=== PATIENT | female | born 1990 | race Caucasian/White ===

== ENCOUNTER 2016-07-19 09:22 | Observation (INO) | payer MEDICAID ==
[2016-07-19] MEDS ORDERED: IPRATROPIUM/ALBUTEROL 0.5-2.5 MG/3 ML AMPUL NEB ONE (09:50)
[2016-07-19] MEDS ORDERED: NORMAL SALINE 1000 ML 1,000 ML IV ONE (09:50)
--- NOTE | 2016-07-19 09:50 | ER Document Report ---
ED Respiratory Problem - General Time seen by provider: 09:45 Mode of Arrival: Ambulatory Information source: Patient TRAVEL OUTSIDE OF THE [place] IN LAST 30 DAYS: No - HPI Patient complains to provider of: Asthma Onset: Yesterday Associated symptoms: Other - See above <OLENA HERRERA - Last Filed: 07/19/16 10:26> <MEL DEVI - Last Filed: 07/19/16 13:24> - General Chief Complaint: Asthma Exacerbation Stated Complaint: DIFFICULTY BREATHING Notes: Patient is a 26 year old female who presents to the emergency department complaining of asthma exacerbation onset yesterday. Patient states she has been using her inhalers at home, which she typically uses everyday, with no relief as well as a nebulizer which helps for a little while but does not correct her complaint, patient used her last vial today. Patient also complains of wheezing and a non productive cough. Patient states she is and her last menstrual cycle was on June 08. (OLENA HERRERA) - Related Data Allergies/Adverse Reactions: No Known Allergies Allergy (Verified 07/19/16 09:30) Past Medical History - General Information source: Patient - Social History Smoking Status: Never Smoker Occupation: [employer] Family History: Reviewed & Not Pertinent Patient has suicidal ideation: No Patient has homicidal ideation: No Pulmonary Medical History: Reports: Hx Asthma - Immunizations Hx Diphtheria, Pertussis, Tetanus Vaccination: No <OLENA HERRERA - Last Filed: 07/19/16 10:26> Review of Systems - Review of Systems Constitutional: No symptoms reported EENT: No symptoms reported Cardiovascular: No symptoms reported Respiratory: See HPI, Cough, Wheezing, Other - Difficulty breathing Gastrointestinal: No symptoms reported Genitourinary: No symptoms reported Female Genitourinary: See HPI, Musculoskeletal: No symptoms reported Skin: No symptoms reported Hematologic/Lymphatic: No symptoms reported Neurological/Psychological: No symptoms reported -: Yes All other systems reviewed and negative <OLENA HERRERA - Last Filed: 07/19/16 10:26> Physical Exam - Vital signs Interpretation: Tachypneic - HEENT Head: Normocephalic, Atraumatic - Respiratory Respiratory status: Retractions, Tachypnea - only 2-3 words before breath Chest status: Nontender Breath sounds: Nonproductive cough - dry, Wheezing - expiratory and inspiratory Chest palpation: Normal - Cardiovascular Rhythm: Regular Heart sounds: Normal auscultation Murmur: No - Back Back: Normal, Nontender - Extremities General upper extremity: Normal inspection General lower extremity: Normal inspection - Neurological Neuro grossly intact: Yes Cognition: Normal Orientation: AAOx4 Emiliano Coma Scale Eye Opening: Spontaneous [place] Coma Scale Verbal: Oriented Emiliano Coma Scale Motor: Obeys Commands Emiliano Coma Scale Total: 15 Speech: Normal - Psychological Associated symptoms: Normal affect, Normal mood - Skin Skin Temperature: Warm Skin Moisture: Dry Skin Color: Normal <OLENA HERRERA - Last Filed: 07/19/16 10:26> Course - Laboratory Result Diagrams: 07/19/16 11:00 07/19/16 11:00 - Diagnostic Test Radiology reviewed: Image reviewed, Reports reviewed - Chest x-ray does not show an acute process - Consults Dr. Carrillo Time consulted: 13:10 Consulted provider: will come to ER <MEL DEVI - Last Filed: 07/19/16 13:24> - Vital Signs Vital signs: Temp Pulse Resp BP Pulse Ox 97.8 F 102 H 16 136/91 H 92 07/19/16 09:27 07/19/16 09:27 07/19/16 10:30 07/19/16 09:27 07/19/16 09:27 - Laboratory Laboratory results interpreted by me: 07/19/16 07/19/16 07/19/16 11:00 11:00 11:00 RDW 14.6 H Eosinophils % 6.1 H Chloride 108 H Serum HCG, Qual POSITIVE H Discharge <OLENA HERRERA - Last Filed: 07/19/16 10:26> - Discharge Admitting Provider: Hospitalist Unit Admitted: Medical Floor <MEL DEVI - Last Filed: 07/19/16 13:24> - Discharge Clinical Impression: First trimester Status asthmaticus Qualifiers: Asthma severity: unspecified severity Qualified Code(s): J45.902 - Unspecified asthma with status asthmaticus Condition: Stable Disposition: ADMITTED INPATIENT Referrals: JOSESITO CHRISTENSEN PA-C [Primary Care Provider] - Follow up as needed Scribe Attestation: 07/19/16 13:24 I personally performed the services described in the documentation, reviewed and edited the documentation which was dictated to the scribe in my presence, and it accurately records my words and actions. (MEL DEVI) Scribe Documentation - Scribe Written by Scribe:: vivian Jansen, 07/19/16, 0958 acting as scribe for :: Evaristo <OLENA HERRERA - Last Filed: 07/19/16 10:26>
[2016-07-19] MEDS ORDERED: MAGNESIUM SULFATE INJ 8 MEQ/2 ML IV ONE (09:51)
[2016-07-19] MEDS ORDERED: PREDNISONE 20 MG TABLET PO ONE (09:51)
[2016-07-19] MEDS ORDERED: ALBUTEROL SULFATE 0.083% NEB 2.5 MG/3 ML AMPUL NEB ONE ×2 (10:20→12:52)
[2016-07-19] MEDS ORDERED: MAGNESIUM SULFATE/D5W 1 GM/100 ML RTUPB IV ONE ×2 (11:30→12:00)
[2016-07-19 12:30] LABS: ABSOLUTE EOSINOPHILS # (AUTO) 0.6 10^3/uL (0.0-0.6); ABSOLUTE LYMPHOCYTES (AUTO) 1.4 10^3/uL (0.5-4.7); ABSOLUTE MONOCYTES (AUTO) 0.5 10^3/uL (0.1-1.4); BASOPHILS % (AUTO) 0.3 % (0-2); EOSINOPHILS % (AUTO) 6.1 % (0-6); HEMOGLOBIN 14.2 g/dL (12.0-15.5); HGB HCT DIFFERENCE -0.4; MEAN CORPUSCULAR HEMOGLOBIN 27.9 pg (27.0-33.4); MEAN CORPUSCULAR VOLUME 84 fl (80-97); MONOCYTES % (AUTO) 5.6 % (3-13); RED CELL DISTRIBUTION WIDTH 14.6 % (11.5-14.0); WHITE BLOOD COUNT 9.6 10^3/uL (4.0-10.5)
[2016-07-19 12:44] LABS: ALANINE AMINOTRANSFERASE 23 U/L (9-52); ALBUMIN 4.6 g/dL (3.5-5.0); ALKALINE PHOSPHATASE 64 U/L (38-126); ANION GAP 14 (5-19); ASPARTATE AMINO TRANSFERASE 15 U/L (14-36); BILIRUBIN,DIRECT 0.2 mg/dL (0.0-0.4); BILIRUBIN,TOTAL 0.5 mg/dL (0.2-1.3); BLOOD UREA NITROGEN 9 mg/dL (7-20); CALCIUM 9.8 mg/dL (8.4-10.2); CARBON DIOXIDE 22 mmol/L (22-30); CHLORIDE 108 mmol/L (98-107); GLUCOSE 105 mg/dL (75-110); POTASSIUM 3.9 mmol/L (3.6-5.0); SODIUM 143.8 mmol/L (137-145); TOTAL PROTEIN 7.8 g/dL (6.3-8.2)
[2016-07-19] MEDS ORDERED: ACETAMINOPHEN 325 MG TABLET PO PRN (13:37)
--- NOTE | 2016-07-19 13:54 | PDOC H&P ---
History of Present Illness Admission Date/PCP: JOSESITO CHRISTENSEN PA-C Patient complains of: Shortness of breath and wheezing History of Present Illness: YADIEL NAJERA is a 26 year old female with a history of asthma and was never been intubated but has required hospitalization previously presents with a four- day history of worsening shortness of breath cough and wheezing. Patient denies any fevers or chills. She denies orthopnea or PND. Patient presented to emergency room and was given relaxers but continued to have wheezing and she is referred for inpatient treatment of her asthma exacerbation. Patient denies any recent travel. She denies any immobility. Denies any lower extremity edema. She denies being around anyone who is sick. She does report that she is approximately 6 weeks . Past Medical History Pulmonary Medical History: Reports: Asthma Denies: Tuberculosis Psychiatric Medical History: Denies: Depression Past Surgical History Past Surgical History: Reports: None Social History Information Source: Patient Smoking Status: Never Smoker Frequency of Alcohol Use: Occasional Hx Recreational Drug Use: No Hx Prescription Drug Abuse: No - Advance Directive Resuscitation Status: Full Code Family History Family History: Mother's 49 and healthy. Father is in his 50s and is healthy. Parental Family History Reviewed: Yes Children Family History Reviewed: No Sibling(s) Family History Reviewed.: No Medication/Allergy Home Medications: Norgestimate-Ethinyl Estradiol [Mononessa 28 Tablet] 1 tab PO DAILY 05/17/15 Albuterol Sulfate [Proair HFA Inhalation Aerosol 8.5 gm MDI] 2 puff IH Q4H PRN # 1 hfa.aer.ad 05/18/15 Albuterol Sulfate [Ventolin 0.083% Neb 2.5 mg/3 mL Ampul] 2.5 mg NEB Q4H PRN # 60 vial.neb 05/18/15 Levofloxacin [Levaquin 750 mg Tablet] 750 mg PO DAILY #10 tab 05/18/15 Prednisone [Sterapred Ds] 1 pkg PO ASDIR PRN 12 Days 05/18/15 Albuterol Sulfate [Ventolin HFA MDI 18 GM] 1 - 2 puff IH Q4H PRN #1 mdi Prednisone [Deltasone 20 mg Tablet] 3 tab PO DAILY 5 Days 08/31/15 Hydrocodone/Acetaminophen [Baird 5-325 Tablet] 1 each PO Q4 PRN #10 tablet 03/08 Allergies/Adverse Reactions: No Known Allergies Allergy (Verified 07/19/16 09:30) Review of Systems Constitutional: ABSENT: chills, fatigue, fever(s), headache(s), night sweats, weight gain, weight loss Eyes: ABSENT: visual disturbances Ears: ABSENT: hearing changes Cardiovascular: ABSENT: chest pain, dyspnea on exertion, edema, orthropnea, palpitations Respiratory: PRESENT: as per HPI Gastrointestinal: ABSENT: abdominal pain, constipation, diarrhea, hematemesis, hematochezia, nausea, vomiting Genitourinary: ABSENT: dysuria, hematuria Musculoskeletal: ABSENT: joint swelling Integumentary: ABSENT: rash, wounds Neurological: ABSENT: abnormal gait, abnormal speech, confusion, dizziness, focal weakness, syncope Psychiatric: ABSENT: anxiety, depression Endocrine: ABSENT: cold intolerance, heat intolerance, polydipsia, polyuria Hematologic/Lymphatic: ABSENT: easy bleeding, easy bruising Physical Exam Vital Signs: Temp Pulse Resp BP Pulse Ox 97.8 F 102 H 16 136/91 H 92 07/19/16 09:27 07/19/16 09:27 07/19/16 10:30 07/19/16 09:27 07/19/16 09:27 Intake & Output 07/18/16 07/19/16 07/20/16 06:59 06:59 06:59 Weight 107.6 kg General appearance: PRESENT: no acute distress, well-developed, well-nourished Head exam: PRESENT: atraumatic, normocephalic Eye exam: PRESENT: conjunctiva pink, EOMI, PERRLA. ABSENT: scleral icterus Ear exam: PRESENT: normal external ear exam Mouth exam: PRESENT: moist, tongue midline Neck exam: ABSENT: carotid bruit, JVD, lymphadenopathy, thyromegaly Respiratory exam: PRESENT: wheezes - Bilateral respiratory wheezes. ABSENT: rales, rhonchi Cardiovascular exam: PRESENT: RRR. ABSENT: diastolic murmur, rubs, systolic murmur Vascular exam: PRESENT: normal capillary refill GI/Abdominal exam: PRESENT: normal bowel sounds, soft. ABSENT: distended, guarding, mass, organolmegaly, rebound, tenderness Rectal exam: PRESENT: deferred Extremities exam: ABSENT: calf tenderness, clubbing, pedal edema Neurological exam: PRESENT: alert, awake, oriented to person, oriented to place , oriented to time, oriented to situation, CN II-XII grossly intact. ABSENT: motor sensory deficit Psychiatric exam: PRESENT: appropriate affect Skin exam: PRESENT: dry, intact, warm. ABSENT: cyanosis, rash Results Laboratory Results: 07/19/16 11:00 07/19/16 11:00 07/19/16 07/19/16 07/19/16 11:00 11:00 11:00 WBC 9.6 RBC 5.10 Hgb 14.2 Hct 43.0 MCV 84 MCH 27.9 MCHC 33.0 RDW 14.6 H Plt Count 268 Seg Neutrophils % 73.0 Lymphocytes % 15.0 Monocytes % 5.6 Eosinophils % 6.1 H Basophils % 0.3 Absolute Neutrophils 7.0 Absolute Lymphocytes 1.4 Absolute Monocytes 0.5 Absolute Eosinophils 0.6 Absolute Basophils 0.0 Sodium 143.8 Potassium 3.9 Chloride 108 H Carbon Dioxide 22 Anion Gap 14 BUN 9 Creatinine 0.60 Est GFR ( Amer) > 60 Est GFR (Non-Af Amer) > 60 Glucose 105 Calcium 9.8 Total Bilirubin 0.5 AST 15 ALT 23 Alkaline Phosphatase 64 Total Protein 7.8 Albumin 4.6 Serum HCG, Qual POSITIVE H Impressions: Chest X-Ray 07/19/16 12:07 IMPRESSION: NO ACUTE RADIOGRAPHIC FINDING IN THE CHEST. Assessment & Plan - Diagnosis (1) Acute asthma exacerbation Qualifiers: Asthma severity: moderate persistent Qualified Code(s): J45.41 - Moderate persistent asthma with (acute) exacerbation Is this a current diagnosis for this admission?: YesPlan: Patient has failed outpatient treatment and will be admitted for IV steroids and nebulizers. She has no evidence for any type of infection. (2) First trimester Is this a current diagnosis for this admission?: Yes - Time Time Spent: 30 to 50 Minutes - Inpatient Certification Medical Necessity: Need Close Monitoring Due to Risk of Patient Decompensation, Need for Nebulizer Therapy and Monitoring of Response - Plan Summary Plan Summary: Patient will be admitted as observation as I anticipate this will require less than a two midnight stay.
[2016-07-19] MEDS: ALBUTEROL SULFATE 0.083% NEB 2.5 MG/3 ML AMPUL NEB PRN (19:54)
[2016-07-19] MEDS: METHYLPREDNISOLONE INJ 40 MG/1 ML SDV IV SCH (21:37)
[2016-07-20] MEDS: ALBUTEROL SULFATE 0.083% NEB 2.5 MG/3 ML AMPUL NEB PRN ×2 (02:42→08:40)
[2016-07-20] MEDS: METHYLPREDNISOLONE INJ 40 MG/1 ML SDV IV SCH (09:10)
[2016-07-20 16:56] VITALS: BP 110/63
--- NOTE | 2016-07-20 17:48 | PDOC DISCHARGE SUMMARY ---
General - Admit/Disc Date/PCP Admission Date/Primary Care Provider: 07/19/16 13:46 JOSESITO CHRISTENSEN PA-C Discharge Date: 07/20/16 - Discharge Diagnosis (1) Acute asthma exacerbation Is this a current diagnosis for this admission?: YesSummary: Improved with steroids. (2) First trimester Is this a current diagnosis for this admission?: Yes - Additional Information Resuscitation Status: Full Code Discharge Diet: Regular Discharge Activity: Activity As Tolerated Home Medications: Albuterol Sulfate [Albuterol Sulfate 2.5mg/3 mL] 2.5 mg PO Q4HP PRN 07/20/16 Albuterol Sulfate [Proair HFA Inhalation Aerosol 8.5 gm MDI] 2 puff IH Q4HP PRN 07/20/16 Fluticasone/Salmeterol [Advair HFA 45-21 mcg Inhaler] 2 puff IH Q4HP PRN Pnv95/Ferrous Fumarate/FA [ Tablet] 1 tab PO DAILY 07/20/16 Prednisone 10 mg PO DAILY #39 tablet 07/20/16 History of Present Illness History of Present Illness: YADIEL NAJERA is a 26 year old female with a history of asthma and was never been intubated but has required hospitalization previously presents with a four- day history of worsening shortness of breath cough and wheezing. Patient denies any fevers or chills. She denies orthopnea or PND. Patient presented to emergency room and was given relaxers but continued to have wheezing and she is referred for inpatient treatment of her asthma exacerbation. Patient denies any recent travel. She denies any immobility. Denies any lower extremity edema. She denies being around anyone who is sick. She does report that she is approximately 6 weeks . Hospital Course Hospital Course: 26-year-old female with history of asthma admitted for an asthma exacerbation. She was treated with nebulizers and IV steroids. Patient had quick improvement in her respiratory status on the day of discharge she was back to her baseline. Please note patient is in her first trimester . She is sent home on a prednisone taper and continue with her inhalers. Physical Exam Vital Signs: Temp Pulse Resp BP Pulse Ox 97.7 F 96 17 110/63 98 07/20/16 16:00 07/20/16 16:00 07/20/16 16:00 07/20/16 16:00 07/20/16 16:00 Intake & Output 07/19/16 07/20/16 07/21/16 06:59 06:59 06:59 Intake Total 800 744 Balance 800 744 Weight 106.2 kg General appearance: PRESENT: no acute distress Eye exam: PRESENT: conjunctiva pink. ABSENT: scleral icterus Mouth exam: PRESENT: moist, tongue midline Neck exam: ABSENT: JVD Respiratory exam: PRESENT: clear to auscultation elise. ABSENT: rales, rhonchi, wheezes GI/Abdominal exam: PRESENT: normal bowel sounds, soft. ABSENT: distended, guarding, mass, organolmegaly, rebound, tenderness Extremities exam: ABSENT: calf tenderness, clubbing, pedal edema Neurological exam: PRESENT: alert, awake, oriented to person, oriented to place , oriented to time, oriented to situation, CN II-XII grossly intact. ABSENT: motor sensory deficit Psychiatric exam: PRESENT: appropriate affect Skin exam: PRESENT: dry, intact, warm. ABSENT: cyanosis, rash Results Impressions: Chest X-Ray 07/19/16 12:07 IMPRESSION: NO ACUTE RADIOGRAPHIC FINDING IN THE CHEST. Qualifiers PATEINT BEING DISCHARGED WITH ANY OF THE FOLLOWING DIAGNOSIS?: No Plan Discharge Plan: She will follow-up with her primary care in 2 weeks. Time Spent: Less than 30 Minutes
== END 2016-07-20 18:26 | disposition home or self-care (01) ==
LOC: ER 09:22 → EH 13:46 → INTOOBSV 13:46 → 5 18:19
PROVIDERS: ADMIT Internal Medicine; ATTEND Internal Medicine
PROC: 3E033GC Introduction of Other Therapeutic Substance into Peripheral Vein, Percutaneous Approach (ICD-10-PCS; principal; 2016-07-19)
PROC: 3E0337Z Introduction of Electrolytic and Water Balance Substance into Peripheral Vein, Percutaneous Approach (ICD-10-PCS; 2016-07-19)
DX: O99.511 Diseases of the respiratory system complicating pregnancy, first trimester (principal); J45.41 Moderate persistent asthma with (acute) exacerbation; Z3A.01 Less than 8 weeks gestation of pregnancy
CPT/HCPCS: 94640 ×4; 99285; 96361; 96365; 36415; 84703; 85025; 80053; 71010; J2920 ×2; J3475; J7512; J3490 ×2; J7030; J7620; G0378

== ENCOUNTER 2016-07-24 09:31 | Emergency (ER) | payer MEDICAID ==
--- NOTE | 2016-07-24 10:29 | ER Document Report ---
ED Medical Screen (RME) - General Chief Complaint: Vaginal Bleeding Stated Complaint: VAGINAL BLEEDING Notes: Patient is and having some vaginal bleeding yesterday. She is approximately 7 weeks , eighth , 2 live births. She has had some spotting and bleeding yesterday, but it also stopped yesterday. Did have some mild cramping yesterday. Patient has not had any care or ultrasound yet. Having nausea no vomiting. TRAVEL OUTSIDE OF THE [place] IN LAST 30 DAYS: No - Related Data Allergies/Adverse Reactions: No Known Allergies Allergy (Verified 07/24/16 09:40) Past Medical History Pulmonary Medical History: Reports: Hx Asthma Denies: Hx Tuberculosis Renal/ Medical History: Denies: Hx Peritoneal Dialysis Psychiatric Medical History: Denies: Hx Depression - Immunizations Hx Diphtheria, Pertussis, Tetanus Vaccination: No Physical Exam - Vital signs Vitals: Temp Pulse Resp BP Pulse Ox 98.2 F 91 21 H 119/86 H 98 07/24/16 09:40 07/24/16 09:40 07/24/16 09:40 07/24/16 09:40 07/24/16 09:40 Course - Vital Signs Vital signs: Temp Pulse Resp BP Pulse Ox 98.2 F 91 21 H 119/86 H 98 07/24/16 09:40 07/24/16 09:40 07/24/16 09:40 07/24/16 09:40 07/24/16 09:40
--- NOTE | 2016-07-24 12:12 | ER Document Report ---
ED GI/ - General Chief Complaint: Vaginal Bleeding Stated Complaint: VAGINAL BLEEDING Time seen by provider: 12:06 Mode of Arrival: Ambulatory Information source: Patient Notes: 26-year-old female presents to ED for vaginal bleeding starting yesterday she is about 6-7 weeks this is her eighth with 2 live bursts. She is spotting and she also started yesterday. Does have some mild cramping. Patient has not had a care or ultrasound that she had TRAVEL OUTSIDE OF THE [place] IN LAST 30 DAYS: No - HPI Patient complains to provider of: Pelvic pain, , Vaginal bleeding Onset: Yesterday Timing/Duration: Intermittent Quality of pain: Cramping Severity at maximum: Mild Severity in ED: Mild Pain Level: 1 Location: Pelvis Vaginal bleeding (Compared to normal period): Spotting Menstrual period history: : 8 Para: 2 heart tones (bpm): 126 EDC: 03/16/17 ABO type: AB Rh factor: positive OB ultrasound done: Yes vitamins taken: Yes Associated symptoms: Nausea, Vomiting, Other - Vaginal bleeding, cramping Exacerbated by: Denies Relieved by: Denies Similar symptoms previously: Yes Recently seen / treated by doctor: No - Related Data Allergies/Adverse Reactions: No Known Allergies Allergy (Verified 07/24/16 09:40) Past Medical History - General Information source: Patient Last Menstrual Period: 06/08/16 - Social History Smoking Status: Former Smoker Cigarette use (# per day): No Chew tobacco use (# tins/day): No Smoking Education Provided: No Frequency of alcohol use: Occasional Drug Abuse: None Occupation: benefits sales consultant Lives with: Spouse/Significant other - Child Family History: Arthritis, CAD, COPD, CVA, DM, Hypertension, Malignancy, Thyroid Disfunction Patient has suicidal ideation: No Patient has homicidal ideation: No - Past Medical History Cardiac Medical History: Reports: None Pulmonary Medical History: Reports: Hx Asthma EENT Medical History: Reports: None Neurological Medical History: Reports: None Endocrine Medical History: Reports: None Renal/ Medical History: Reports: None Malignancy Medical History: Reports: None GI Medical History: Reports: None Musculoskeltal Medical History: Reports None Skin Medical History: Reports None Psychiatric Medical History: Reports: None Traumatic Medical History: Reports: None Infectious Medical History: Reports: None Surgical Hx: Negative Past Surgical History: Reports: None - Immunizations Hx Diphtheria, Pertussis, Tetanus Vaccination: No Review of Systems - Review of Systems Constitutional: No symptoms reported EENT: No symptoms reported Cardiovascular: No symptoms reported Respiratory: No symptoms reported Gastrointestinal: Nausea, Vomiting Genitourinary: No symptoms reported Female Genitourinary: , Vaginal bleeding, Other - Pelvic cramping Musculoskeletal: No symptoms reported Skin: No symptoms reported Hematologic/Lymphatic: No symptoms reported Neurological/Psychological: No symptoms reported Physical Exam - Vital signs Vitals: Temp Pulse Resp BP Pulse Ox 98.2 F 91 21 H 119/86 H 98 07/24/16 09:40 07/24/16 09:40 07/24/16 09:40 07/24/16 09:40 07/24/16 09:40 Interpretation: Normal - General General appearance: Appears well, Alert - HEENT Head: Normocephalic, Atraumatic Eyes: Normal Pupils: PERRL - Respiratory Respiratory status: No respiratory distress Chest status: Nontender Breath sounds: Normal Chest palpation: Normal - Cardiovascular Rhythm: Regular Heart sounds: Normal auscultation Murmur: No - Abdominal Inspection: Normal Distension: No distension Bowel sounds: Normal Tenderness: Nontender Organomegaly: No organomegaly - Genitourinary External exam: Normal Speculum exam: Cervix closed Vaginal bleeding: None Bimanuel exam: Uterus enlarged - Back Back: Normal, Nontender - Extremities General upper extremity: Normal inspection, Nontender, Normal color, Normal ROM , Normal temperature General lower extremity: Normal inspection, Nontender, Normal color, Normal ROM , Normal temperature, Normal weight bearing. No: Estefany's sign - Neurological Neuro grossly intact: Yes Cognition: Normal Orientation: AAOx4 [place] Coma Scale Eye Opening: Spontaneous Emil[place] Coma Scale Verbal: Oriented [place] Coma Scale Motor: Obeys Commands Emiliano Coma Scale Total: 15 Speech: Normal Motor strength normal: LUE, RUE, LLE, RLE Sensory: Normal - Psychological Associated symptoms: Normal affect, Normal mood - Skin Skin Temperature: Warm Skin Moisture: Dry Skin Color: Normal Course - Re-evaluation Re-evalutation: 07/24/16 22:36 Discussed ultrasound with patient and written report given to patient to follow- up with [facility]. Patient given a list of [facility] today and instructed to call first thing in the morning. Patient was treated with Flagyl and azithromycin and Rocephin for her bacterial vaginosis and Trichomonas patient did not want to wait for the GC and chlamydia results so she was to call back later for these results. They were both negative. - Vital Signs Vital signs: Temp Pulse Resp BP Pulse Ox 97.7 F 73 16 126/70 H 95 07/24/16 14:21 07/24/16 14:21 07/24/16 14:21 07/24/16 14:21 07/24/16 14:21 - Laboratory Laboratory results interpreted by me: 07/24/16 10:30 Beta HCG, Quant 88882.00 H - Diagnostic Test Radiology reviewed: Image reviewed, Reports reviewed Discharge - Discharge Clinical Impression: Vaginal bleeding before 22 weeks gestation, Trichomonas infection, Vaginitis affecting in first trimester, antepartum Condition: Stable Disposition: HOME, SELF-CARE Instructions: [facility] Additional Instructions: : You are . care is best started as early in as possible. If you're unsure about continuing this , you should discuss this with your physician or with [facility] stringer at [facility]. You should take only medications approved by your physician. Acetaminophen can safely be taken for minor pains. As a rule, medication for chronic conditions such as asthma or seizures can safely be continued. You should discuss with the physician every medicine you take. Any regular exercise program can be continued. Talk to your physician, however, before engaging in competitive or demanding sports. Alcohol, smoking, and "street drugs" are dangerous to your baby. Cocaine is especially dangerous. Don't use any illicit drugs! BLEEDING DURING EARLY : You have been evaluated for passing blood while . While we take this symptom very seriously, most women with your degree of bleeding will go on to have a perfectly normal baby. At this time, there is no indication that a miscarriage will occur. (A miscarriage occurs when the fetus is abnormal. There is no medicine or treatment to prevent it.) A more serious cause of bleeding is tubal (or ectopic) . An ultrasound usually can show whether the is in the uterus or in the tube. Sometimes in early , no fetus is seen. In this case, careful follow-up, including repeat blood tests and repeat ultrasound, is necessary. Do not douche or have sex for at least a week, or until OK'd by the doctor. Don't use tampons. Call the doctor or return for re-examination if there is an increase in bleeding or cramping, extreme weakness, fainting, new abdominal pain, fever, or passage of tissue. VAGINITIS: Your exam shows that you have vaginitis, a vaginal infection. The infection can be caused by a many different organisms, including trichomonas or Gardnerella. The usual symptoms are vaginal irritation and discharge. The treatment is usually antibiotics such as Flagyl. Laboratory tests can determine which germ is responsible. Use the medication as prescribed. Because this infection can be transmitted sexually, your sexual partner may need to be checked and treated also. If your physician has not discussed this with you, please check before resuming sexual relations. If a culture shows gonorrhea or chlamydia, the infection must be reported to the health department. Call the doctor if you develop pelvic pain, fever, or problems with urination, or if you don't improve as expected. VAGINOSIS, BACTERIAL: Your exam shows you have bacterial vaginosis. This condition is due to an overgrowth of bacteria in the vagina. Symptoms may include vaginal itching or pain, a smelly discharge, and sometimes burning with urination. Normally this is not transmitted by sexual contact. Vaginosis can be treated with oral or topical antibiotics. Metronidazole ( Flagyl) pills are usually effective. Topical vaginal creams include Cleocin and Metro-Gel. You should avoid sexual contact until your symptoms are all better. Call the doctor if you develop pelvic pain, fever, or problems with urination, or if you don't improve as expected. VAGINAL TRICHOMONAS INFECTION: Trichomoniasis is infection of the vagina or male genital tract with Trichomonas vaginalis. It can be asymptomatic or cause urethritis, vaginitis, or occasionally cystitis, epididymitis, or prostatitis. Diagnosis is by microscopic examination of vaginal or prostatic secretions or by urethral culture. Patients and sex partners are treated with metronidazole. T. vaginalis is a flagellated, sexually transmitted protozoan that more often infects women (about 20% of women of reproductive age) than men. Infection may be asymptomatic in either sex, but asymptomatic is the rule for men. In men, protozoa may persist for long periods in the tract without causing symptoms; thus, protozoa may be transmitted unwittingly to sex partners. Trichomoniasis may account for up to 5% of nongonococcal, nonchlamydial urethritis in men in some areas. Co-infection with gonorrhea and other sexually transmitted diseases (STDs) is common. In women, symptoms range from none to copious, yellow-green, frothy vaginal discharge with soreness of the vulva and perineum, dyspareunia, and dysuria. Asymptomatic infection may become symptomatic at any time as the vulva and perineum become inflamed and edema develops in the labia. The vaginal delgado and surface of the cervix may have punctate, red "strawberry" spots. Urethritis and possibly cystitis may also occur. Men are usually asymptomatic; however, sometimes urethritis results in a discharge that may be transient, frothy, or purulent or that causes dysuria and frequency, usually early in the morning. Often, urethritis is mild and causes only minimal urethral irritation and occasional moisture at the urethral meatus , under the foreskin, or both. Epididymitis and prostatitis are rare complications. Trichomoniasis is suspected in women with vaginitis, in men with urethritis , and in their sex partners. Suspicion is high if symptoms persist after patients have been evaluated and treated for other infections such as gonorrhea and chlamydial, mycoplasmal, and ureaplasmal infections. In women, diagnosis is based on clinical criteria and in-office testing. The saline wet mount is examined microscopically as soon as possible to detect trichomonads.In men, microscopy of urine is insensitive, although occasionally organisms are visible in a first-voided morning specimen or a centrifuged specimen. Cultures of urine and urethral swabs are more sensitive. As with diagnosis of any STD, patients with trichomoniasis should be tested to exclude other common STDs such as gonorrhea and chlamydial infection. Metronidazole or tinidazole 2 g po in a single dose cures up to 95% of women if sex partners are treated simultaneously. Effectiveness of single-dose regimens in men is not as clear, so treatment is typically with metronidazole or tinidazole 500 mg bid for 5 to 7 days. Sex partners should be screened and treated for trichomoniasis and other STDs. If poor adherence to follow-up is likely, treatment can be initiated in sex partners of patients with documented trichomoniasis without confirming the diagnosis in the partner. CEPHALOSPORINS: An antibiotic of the cephalosporin class has been prescribed. This type of antibiotic covers a wide variety of infections, including those of the skin, lungs, middle ear, and urinary tract. This antibiotic is somewhat similar to the penicillin family. In rare cases , a person who is allergic to penicillin will also be allergic to this medication. If you have had a severe allergic reaction to penicillin, and have not taken this antibiotic since that time, notify your doctor. Antibiotics which cover many germs ("broad spectrum" antibiotics) are more likely to cause diarrhea or "yeast" infections. Women prone to vaginal yeast problems may suffer an attack after taking this antibiotic. In infants, oral thrush (white spots "stuck" on the cheek) or yeast diaper rash may result. See your doctor if these problems occur. Call the doctor at once if you develop hives, itching, shortness of breath , or lightheadedness. AZITHROMYCIN: Azithromycin (Zithromax) is a broad spectrum antibiotic in the same class as erythromycin. It can treat a variety of bacterial infections, but is most frequently used for respiratory infections. Azithromycin is extremely long-lasting. It accumulates in body tissues and continues to kill bacteria for many days. In order to improve absorption, Azithromycin should be taken at least one hour before or two hours after a meal. It does not have the same strong tendency to upset the stomach as erythromycin and is usually very well tolerated. Patients who have had a rash or other true allergic reactions to erythromycin should not take this medication. Call if you develop gastrointestinal distress, severe diarrhea, rash, hives, itching, or shortness of breath. METRONIDAZOLE: Metronidazole (Flagyl) has been prescribed. This medication is used to kill a type of bacteria called anaerobes, and protozoan parasites such as trichomonas and Giardia. Flagyl often causes a metallic taste in the mouth and mild nausea. Do not use alcohol in any form with Flagyl (including alcohol in medication elixirs). Flagyl interacts with alcohol to cause flushing, palpitations, headache, stomach cramps, and vomiting. Do not use Flagyl if you are taking Antabuse (disulfiram). Call the doctor at once if you develop rash, shortness of breath, itching, or lightheadedness. FOLLOW-UP CARE: If you have been referred to a physician for follow-up care, call the physician s office for an appointment as you were instructed or within the next two days. If you experience worsening or a significant change in your symptoms, notify the physician immediately or return to the Emergency Department at any time for re-evaluation. Labs and ultrasound of been discussed with you a copy of your wet mount and your ultrasound were given to you for your follow-up visit. You have been treated with antibiotics for the Trichomonas bacterial vaginosis and you have been treated in case the GC or chlamydia comes back positive. Please call in about 2 hours for the results of the GC and Chlamydia. Please complete the patient's satisfaction survey if you get one and return. If you do not receive a survey you can go to [facility] website [email or web address] and placed her comments about your very good care. Thank you very much. It was a pleasure be in your medical provider today. Forms: Elevated Blood Pressure, Return to Work Referrals: JOSESITO CHRISTENSEN PA-C [Primary Care Provider] - Follow up as needed
[2016-07-24] MEDS ORDERED: LIDOCAINE 1% INJ-PF (10 MG/ML) 30 ML SDV INJ ONE (13:20)
[2016-07-24] MEDS ORDERED: METRONIDAZOLE 500 MG TABLET PO ONE (13:20)
[2016-07-24] MEDS ORDERED: AZITHROMYCIN 250 MG TABLET PO ONE (13:20)
[2016-07-24] MEDS ORDERED: CEFTRIAXONE INJ 250 MG VIAL IM ONE (13:20)
[2016-07-24 14:11] LABS: CHLAM PCR NOT DETECTED (NOT DETECT)
[2016-07-24 14:24] VITALS: BP 126/70
== END 2016-07-24 14:24 | disposition home or self-care (01) ==
LOC: ER 09:31
DX: O26.851 Spotting complicating pregnancy, first trimester (principal); O23.591 Infection of other part of genital tract in pregnancy, first trimester; B96.89 Other specified bacterial agents as the cause of diseases classified elsewhere; O98.311 Other infections with a predominantly sexual mode of transmission complicating pregnancy, first trimester; A59.9 Trichomoniasis, unspecified; O26.891 Other specified pregnancy related conditions, first trimester; R10.2 Pelvic and perineal pain; O99.511 Diseases of the respiratory system complicating pregnancy, first trimester; J45.909 Unspecified asthma, uncomplicated; O21.9 Vomiting of pregnancy, unspecified; Z3A.01 Less than 8 weeks gestation of pregnancy; Z87.891 Personal history of nicotine dependence
CPT/HCPCS: 99284; 96372; 86900; 86901; 36415; 87210; 84702; 87491; 87591; 76817; Q0144; J3490 ×2; J0696

== ENCOUNTER 2016-10-11 19:36 | Emergency (ER) | payer MEDICAID ==
[2016-10-11] MEDS ORDERED: ALBUTEROL SULFATE 0.083% NEB 2.5 MG/3 ML AMPUL NEB ONE (20:11)
[2016-10-11] MEDS ORDERED: IPRATROPIUM/ALBUTEROL 0.5-2.5 MG/3 ML AMPUL NEB ONE ×2 (20:11→22:51)
--- NOTE | 2016-10-11 20:12 | ER Document Report ---
ED Medical Screen (RME) - General Chief Complaint: Other Stated Complaint: BREATHING DIFFICULTY,STD EXPOSURE Time Seen by Provider: 10/11/16 20:10 TRAVEL OUTSIDE OF THE [place] IN LAST 30 DAYS: No - HPI Notes: 10/11/16 20:11 Patient coming in for evaluation of shortness of breath. Patient is approximate 3 weeks with a history of asthma she is a states has been seen by 1 self-test on azithromycin not getting any better. Also like to recheck for STDs. - Related Data Allergies/Adverse Reactions: No Known Allergies Allergy (Verified 10/11/16 19:59) Past Medical History Pulmonary Medical History: Reports: Hx Asthma Denies: Hx Tuberculosis Renal/ Medical History: Denies: Hx Peritoneal Dialysis Psychiatric Medical History: Denies: Hx Depression - Immunizations Hx Diphtheria, Pertussis, Tetanus Vaccination: No Review of Systems - Review of Systems Constitutional: Other - sob STD check Physical Exam - Vital signs Vitals: Temp Pulse Resp BP Pulse Ox 98.3 F 106 H 22 H 129/89 H 96 10/11/16 19:59 10/11/16 19:59 10/11/16 19:59 10/11/16 19:59 10/11/16 19:59 - Respiratory Respiratory status: No respiratory distress Chest status: Nontender Breath sounds: Wheezing Chest palpation: Normal Course - Vital Signs Vital signs: Temp Pulse Resp BP Pulse Ox 98.3 F 106 H 22 H 129/89 H 96 10/11/16 19:59 10/11/16 19:59 10/11/16 19:59 10/11/16 19:59 10/11/16 19:59
[2016-10-11 20:48] LABS: APPEARANCE,URINE SLIGHTLY-CLOUDY; BILIRUBIN,URINE NEGATIVE (NEGATIVE); GLUCOSE, URINE NEGATIVE (NEGATIVE); KETONES,URINE NEGATIVE (NEGATIVE); LEUKOCYTE ESTERASE,URINE NEGATIVE (NEGATIVE); NITRITE,URINE NEGATIVE (NEGATIVE); PROTEIN,URINE NEGATIVE (NEGATIVE); URINE SPECIFIC GRAVITY 1.029; UROBILINOGEN,URINE NEGATIVE mg/dL (<2.0)
--- NOTE | 2016-10-11 20:59 | ER Document Report ---
ED General - General Chief Complaint: Other Stated Complaint: BREATHING DIFFICULTY,STD EXPOSURE Time Seen by Provider: 10/11/16 20:10 Mode of Arrival: Ambulatory Information source: Patient Notes: 26-year-old female 8 para 2 currently 18 weeks history of asthma presents with complaints of asthma exacerbation. Patient has recently been on azithromycin and Xopenex notes minimal relief of symptoms. Patient continues to wheeze. Denies any fevers or chills. Patient also wishes to be rechecked for STDs TRAVEL OUTSIDE OF THE [place] IN LAST 30 DAYS: No - HPI Onset: Last week Onset/Duration: Persistent Quality of pain: No pain Severity: Mild Pain Level: Denies Associated symptoms: Nonproductive cough, Shortness of breath Exacerbated by: Walking Relieved by: Denies Similar symptoms previously: Yes Recently seen / treated by doctor: Yes - Related Data Allergies/Adverse Reactions: No Known Allergies Allergy (Verified 10/11/16 19:59) Past Medical History - Social History Smoking Status: Never Smoker Cigarette use (# per day): No Chew tobacco use (# tins/day): No Smoking Education Provided: No Family History: Arthritis, CAD, COPD, CVA, DM, Hypertension, Malignancy, Thyroid Disfunction Pulmonary Medical History: Reports: Hx Asthma Denies: Hx Tuberculosis Renal/ Medical History: Denies: Hx Peritoneal Dialysis Psychiatric Medical History: Denies: Hx Depression - Immunizations Hx Diphtheria, Pertussis, Tetanus Vaccination: No Review of Systems - Review of Systems Notes: REVIEW OF SYSTEMS: CONSTITUTIONAL : Denies fever, chills, or sweats. Denies recent illness. EENT: Denies eye, ear, throat, or mouth pain or symptoms. Denies nasal or sinus congestion or discharge. Denies throat, tongue, or mouth swelling or difficulty swallowing. CARDIOVASCULAR: Denies chest pain. Denies palpitations or racing or irregular heart beat. Denies ankle edema. RESPIRATORY: Admits to shortness of breath GASTROINTESTINAL: Denies abdominal pain or distention. Denies nausea, vomiting , or diarrhea. Denies blood in vomitus, stools, or per rectum. Denies black, tarry stools. Denies constipation. GENITOURINARY: Denies difficulty urinating, painful urination, burning, frequency, blood in urine, or discharge. FEMALE GENITOURINARY: Denies vaginal bleeding, heavy or abnormal periods, irregular periods. Denies vaginal discharge or odor. MUSCULOSKELETAL: Denies back or neck pain or stiffness. Denies joint pain or swelling. SKIN: Denies rash, lesions or sores. HEMATOLOGIC : Denies easy bruising or bleeding. LYMPHATIC: Denies swollen, enlarged glands. NEUROLOGICAL: Denies confusion or altered mental status. Denies passing out or loss of consciousness. Denies dizziness or lightheadedness. Denies headache. Denies weakness or paralysis or loss of use of either side. Denies problems with gait or speech. Denies sensory loss, numbness, or tingling. Denies seizures. PSYCHIATRIC: Denies anxiety or stress. Denies depression, suicidal ideation, or homicidal ideation. ALL OTHER SYSTEMS REVIEWED AND NEGATIVE. PHYSICAL EXAMINATION: GENERAL: Well-appearing, well-nourished and in no acute distress. HEAD: Atraumatic, normocephalic. EYES: Pupils equal round and reactive to light, extraocular movements intact, conjunctiva are normal. ENT: Nares patent, oropharynx clear without exudates. Moist mucous membranes. NECK: Normal range of motion, supple without lymphadenopathy LUNGS: Faint inspiratory expiratory wheezing noted all throughout HEART: Regular rate and rhythm without murmurs ABDOMEN: Soft, nontender, nondistended abdomen. No guarding, no rebound. No masses appreciated. Female : deferred Musculoskeletal: Normal range of motion, no pitting or edema. No cyanosis. NEUROLOGICAL: Cranial nerves grossly intact. Normal speech, normal gait. Normal sensory, motor exams PSYCH: Normal mood, normal affect. SKIN: Warm, Dry, normal turgor, no rashes or lesions noted. Dictation was performed using [facility] voice recognition software Physical Exam - Vital signs Vitals: Temp Pulse Resp BP Pulse Ox 98.3 F 106 H 22 H 129/89 H 96 10/11/16 19:59 10/11/16 19:59 10/11/16 19:59 10/11/16 19:59 10/11/16 19:59 Course - Re-evaluation Re-evalutation: 10/11/16 20:58 Patient instructed on risks and benefits of medications prescribed. Denies any concerns regarding such. Patient will therefore be given steroids at her request Patient is coming in with asthma exacerbation labwork pending otherwise she looks well. 10/11/16 22:51 Patient notes she is breathing much better, I will discharge home with steroids at her request otherwise she is stable for discharge with very strict return precautions After performing a Medical Screening Examination, I estimate there is LOW risk for ACUTE CORONARY SYNDROME, RESPIRATORY FAILURE, SEPSIS OR MENINGITIS, thus I consider the discharge disposition reasonable. I have reevaluated this patient multiple times and no significant life threatening changes are noted. The patient and I have discussed the diagnosis and risks, and we agree with discharging home with close follow-up. We also discussed returning to the Emergency Department immediately if new or worsening symptoms occur. We have discussed the symptoms which are most concerning (e.g., changing or worsening pain, trouble swallowing or breathing, neck stiffness, fever) that necessitate immediate return. - Vital Signs Vital signs: Temp Pulse Resp BP Pulse Ox 98.3 F 106 H 22 H 129/89 H 96 10/11/16 19:59 10/11/16 19:59 10/11/16 19:59 10/11/16 19:59 10/11/16 19:59 - Laboratory Result Diagrams: 10/11/16 20:39 Laboratory results interpreted by me: 10/11/16 10/11/16 20:39 20:39 WBC 15.2 H RDW 14.2 H Eosinophils % 11.8 H Absolute Neutrophils 9.2 H Absolute Eosinophils 1.8 H Beta HCG, Quant 9666.10 H - Diagnostic Test Radiology reviewed: Image reviewed, Reports reviewed Discharge - Discharge Clinical Impression: Acute asthma exacerbation Qualifiers: Asthma severity: moderate persistent Qualified Code(s): J45.41 - Moderate persistent asthma with (acute) exacerbation Qualifiers: Weeks of gestation: 18 weeks Qualified Code(s): Z3A.18 - 18 weeks gestation of Condition: Stable Disposition: HOME, SELF-CARE Instructions: Asthma ([facility]) Prescriptions: Prednisone [Deltasone 20 mg Tablet] 1 tab PO DAILY 5 Days Referrals: OTTO DAI MD [Primary Care Provider] - Follow up in 3-5 days
[2016-10-11 21:00] LABS: BACTERIA,URINE 1+ /HPF
[2016-10-11] MEDS ORDERED: PREDNISONE 20 MG TABLET PO ONE (21:08)
[2016-10-11 21:12] LABS: ABSOLUTE BASOPHILS # (AUTO) 0.1 10^3/uL (0.0-0.2); ABSOLUTE EOSINOPHILS # (AUTO) 1.8 10^3/uL (0.0-0.6); ABSOLUTE LYMPHOCYTES (AUTO) 3.3 10^3/uL (0.5-4.7); ABSOLUTE MONOCYTES (AUTO) 0.8 10^3/uL (0.1-1.4); ABSOLUTE NEUT (AUTO) 9.2 10^3/uL (1.7-8.2); BASOPHILS % (AUTO) 0.4 % (0-2); EOSINOPHILS % (AUTO) 11.8 % (0-6); HEMATOCRIT 41.8 % (36.0-47.0); HEMOGLOBIN 13.9 g/dL (12.0-15.5); HGB HCT DIFFERENCE -0.1; LYMPHOCYTES % (AUTO) 21.8 % (13-45); MEAN CORPUSCULAR HEMOGLOBIN 28.4 pg (27.0-33.4); MEAN CORPUSCULAR HGB CONC 33.3 g/dL (32.0-36.0); MEAN CORPUSCULAR VOLUME 85 fl (80-97); MONOCYTES % (AUTO) 5.6 % (3-13); RED CELL DISTRIBUTION WIDTH 14.2 % (11.5-14.0); SEGMENTED NEUTROPHILS % (AUTO) 60.4 % (42-78); WHITE BLOOD COUNT 15.2 10^3/uL (4.0-10.5)
[2016-10-11 21:29] LABS: MAGNESIUM 2.1 mg/dL (1.6-2.3)
--- NOTE | 2016-10-11 21:54 | RADIOLOGY REPORT (SQ) ---
EXAM DESCRIPTION: CHEST PA/LAT COMPLETED DATE/TIME: 10/11/2016 9:46 pm REASON FOR STUDY: + preg sob COMPARISON: 07/19/2016 EXAM PARAMETERS: NUMBER OF VIEWS: two views TECHNIQUE: Digital Frontal and Lateral radiographic views of the chest acquired. RADIATION DOSE: NA LIMITATIONS: none FINDINGS: LUNGS AND PLEURA: No opacities, masses or pneumothorax. No pleural effusion. MEDIASTINUM AND HILAR STRUCTURES: No masses or contour abnormalities. HEART AND VASCULAR STRUCTURES: Heart normal size. No evidence for failure. BONES: No acute findings. HARDWARE: None in the chest. OTHER: No other significant finding. IMPRESSION: NO SIGNIFICANT RADIOGRAPHIC FINDING IN THE CHEST. TECHNICAL DOCUMENTATION: JOB ID: [id number] [employer]- All Rights Reserved
[2016-10-11 22:07] LABS: CHLAM PCR NOT DETECTED (NOT DETECT)
[2016-10-11 23:48] VITALS: BP 123/65
== END 2016-10-11 23:35 | disposition home or self-care (01) ==
LOC: ER 19:36
DX: J45.41 Moderate persistent asthma with (acute) exacerbation (principal); R06.02 Shortness of breath; Z20.2 Contact with and (suspected) exposure to infections with a predominantly sexual mode of transmission; Z3A.18 18 weeks gestation of pregnancy; Z79.899 Other long term (current) drug therapy
CPT/HCPCS: 94640 ×2; 99285; 36415; 87040; 84702; 83735; 85025; 81001; 87491; 87591; 71020; J7512; J7620

== ENCOUNTER 2017-02-09 11:40 | Outpatient (CLI) | payer MEDICAID | END 2017-02-09 12:48 | disposition home or self-care (01) | LOC: LC 11:40 | PROVIDERS: ATTEND Student in an Organized Health Care Education/Training Program | PROC: 4A1HXCZ Monitoring of Products of Conception, Cardiac Rate, External Approach (ICD-10-PCS; principal; 2017-02-09) | DX: O69.89X0 Labor and delivery complicated by other cord complications, not applicable or unspecified (principal); Z3A.36 36 weeks gestation of pregnancy | CPT/HCPCS: 59025 ==

== ENCOUNTER 2017-02-12 10:53 | Outpatient (CLI) | payer MEDICAID ==
--- NOTE | 2017-02-12 11:41 | Non Stress Test Report ---
Non Stress Test Datetime Report Generated by CPN: 02/12/2017 11:41 DEMOGRAPHIC EGA NST: 35.4 EGA NST: 35.1 INDICATION Indication for Study: Decreased Movement; Ordered by Provider Indication for Study (NST) Other: 2 vessel cord Indication for Study (NST) Other: 2 vessel cord VITAL SIGNS Temperature - NST: 97.7 Pulse - NST: 93 RESP - NST: 16 NBPSYS NST: 131 NBPDIA NST: 79 MONITORING Monitor Explained: Monitor Explained; Test Explained; Patient Verbalized Understanding Monitor Explained: Monitor Explained; Test Explained; Patient Verbalized Understanding Time on Monitor: 02/12/2017 11:06 Time on Monitor: 02/09/2017 12:00 Time off Monitor: 02/12/2017 11:37 NST Duration: 31 NST INTERVENTIONS NST Interventions: PO Hydration; Reposition Patient; Vibroacoustic Stim NST Interventions: PO Hydration; Reposition Patient Physician Notified NST: Dr Castillo BABY A: [id number] BABY A Movement : Present Movement : Present Contraction Frequency : 0 Contraction Frequency : 0 FHR Baseline : 140 FHR Baseline : 135 Accelerations : 15X15 Accelerations : 15X15 Decelerations : None Decelerations : None Variability : Moderate 6-25bpm Variability : Moderate 6-25bpm NST Review: Meets Criteria for Reactive NST NST Review: Meets Criteria for Reactive NST NST Review and Verified By : Ani Handy [facility] NST Results: Reactive NST Results: Reactive NST REPORT Report Trigger: Send Report
== END 2017-02-12 11:44 | disposition home or self-care (01) ==
LOC: LC 10:53
PROVIDERS: ATTEND Obstetrics & Gynecology
PROC: 4A1HXCZ Monitoring of Products of Conception, Cardiac Rate, External Approach (ICD-10-PCS; principal; 2017-02-12)
DX: O36.8130 Decreased fetal movements, third trimester, not applicable or unspecified (principal); Z3A.35 35 weeks gestation of pregnancy
CPT/HCPCS: 59025

== ENCOUNTER 2017-02-16 09:58 | Outpatient (CLI) | payer MEDICAID ==
--- NOTE | 2017-02-16 10:53 | Non Stress Test Report ---
Non Stress Test Datetime Report Generated by CPN: 02/16/2017 10:53 DEMOGRAPHIC Test Number: 1 EGA NST: 36.1 INDICATION Indication for Study: Ordered by Provider Indication for Study (NST) Other: NST MONITORING Monitor Explained: Monitor Explained; Test Explained; Patient Verbalized Understanding Time on Monitor: 02/16/2017 10:15 Time off Monitor: 02/16/2017 10:47 Time off Monitor: 02/16/2017 10:47 NST Duration: 32 NST INTERVENTIONS NST Interventions: PO Hydration Physician Notified NST: Hoang BABY A: [id number] BABY A Movement : Present Contraction Frequency : 0 FHR Baseline : 140 Accelerations : 15X15 Decelerations : None Variability : Moderate 6-25bpm NST Review: Meets Criteria for Reactive NST NST Review and Verified By : Richard CASTANEDA NST Results: Reactive NST REPORT Report Trigger: Send Report
== END 2017-02-16 10:55 | disposition home or self-care (01) ==
LOC: LC 09:58
PROVIDERS: ATTEND Obstetrics & Gynecology
PROC: 4A1HXCZ Monitoring of Products of Conception, Cardiac Rate, External Approach (ICD-10-PCS; principal; 2017-02-16)
DX: Z34.93 Encounter for supervision of normal pregnancy, unspecified, third trimester (principal)
CPT/HCPCS: 59025

== ENCOUNTER 2017-02-27 10:56 | Outpatient (CLI) | payer MEDICAID ==
--- NOTE | 2017-02-27 12:11 | Non Stress Test Report ---
Non Stress Test Datetime Report Generated by CPN: 02/27/2017 12:11 DEMOGRAPHIC EGA NST: 37.5 INDICATION Indication for Study: Ordered by Provider Indication for Study (NST) Other: 2 vessel cord VITAL SIGNS Temperature - NST: 98.3 Pulse - NST: 104 NBPSYS NST: 115 NBPDIA NST: 68 MONITORING Monitor Explained: Monitor Explained; Test Explained; Patient Verbalized Understanding Time on Monitor: 02/27/2017 11:07 Time off Monitor: 02/27/2017 11:52 NST Duration: 45 NST INTERVENTIONS NST Interventions: PO Hydration Physician Notified NST: Dr. Bean BABY A: [id number] BABY A Movement : Present Contraction Frequency : 0 FHR Baseline : 145 Accelerations : 15X15 Decelerations : None Variability : Moderate 6-25bpm NST Review: Meets Criteria for Reactive NST NST Review and Verified By : JOYA Dennis Results: Reactive NST REPORT Report Trigger: Send Report
== END 2017-02-27 11:58 | disposition home or self-care (01) ==
LOC: LC 10:56
PROVIDERS: ATTEND Obstetrics & Gynecology
PROC: 4A1HXCZ Monitoring of Products of Conception, Cardiac Rate, External Approach (ICD-10-PCS; principal; 2017-02-27)
DX: Z34.93 Encounter for supervision of normal pregnancy, unspecified, third trimester (principal)
CPT/HCPCS: 59025

== ENCOUNTER 2017-03-03 10:15 | Outpatient (CLI) | payer MEDICAID ==
--- NOTE | 2017-03-03 11:12 | Non Stress Test Report ---
Non Stress Test Datetime Report Generated by CPN: 03/03/2017 11:11 DEMOGRAPHIC EGA NST: 38.2 INDICATION Indication for Study: Other Indication for Study (NST) Other: 2 VESSEL CORD VITAL SIGNS Temperature - NST: 99.3 Pulse - NST: 111 RESP - NST: 18 NBPSYS NST: 126 NBPDIA NST: 84 MONITORING Monitor Explained: Monitor Explained; Test Explained; Patient Verbalized Understanding Time on Monitor: 03/03/2017 10:30 Time off Monitor: 03/03/2017 11:05 NST Duration: 35 NST INTERVENTIONS NST Interventions: PO Hydration; Reposition Patient Physician Notified NST: H Toni CNM BABY A: [id number] BABY A Movement : Present Contraction Frequency : x0 FHR Baseline : 140 Accelerations : 15X15 Decelerations : None Variability : Moderate 6-25bpm NST Review: Meets Criteria for Reactive NST NST Review and Verified By : Richard Brumfield RNC NST Results: Reactive NST REPORT Report Trigger: Send Report
== END 2017-03-03 11:18 | disposition home or self-care (01) ==
LOC: LC 10:15
PROVIDERS: ATTEND Obstetrics & Gynecology Gynecology
PROC: 4A1HXCZ Monitoring of Products of Conception, Cardiac Rate, External Approach (ICD-10-PCS; principal; 2017-03-03)
DX: Q27.0 Congenital absence and hypoplasia of umbilical artery (principal)
CPT/HCPCS: 59025

== ENCOUNTER 2017-03-13 05:58 | Inpatient (IN) | payer MEDICAID ==
[2017-03-13] MEDS ORDERED: RINGERS SOLUTION,LACTATED 300 ML IV ONE (06:13)
[2017-03-13] MEDS ORDERED: OXYTOCIN/NORMAL SALINE 20 UNIT/1,000 ML RTUINJ IV PRN ×2 (06:13→14:39)
[2017-03-13] MEDS ORDERED: RINGERS SOLUTION,LACTATED 1,000 ML IV PRN (06:13)
[2017-03-13] MEDS ORDERED: PENICILLIN G POTASSIUM 5,000,000 UNIT in DEXTROSE 5%-WATER 100 ML IV ONE (06:15)
[2017-03-13] MEDS ORDERED: PENICILLIN G-K 5 MILLION UNIT VIAL ONE ×2 (06:18→10:24)
[2017-03-13] MEDS ORDERED: OXYTOCIN/NORMAL SALINE 0 UNIT/0 ML RTUINJ ONE (06:39)
[2017-03-13 06:53] LABS: ABSOLUTE EOSINOPHILS # (AUTO) 1.2 10^3/uL (0.0-0.6); ABSOLUTE LYMPHOCYTES (AUTO) 2.3 10^3/uL (0.5-4.7); ABSOLUTE NEUT (AUTO) 6.9 10^3/uL (1.7-8.2); BASOPHILS % (AUTO) 0.4 % (0-2); EOSINOPHILS % (AUTO) 10.4 % (0-6); HEMATOCRIT 32.8 % (36.0-47.0); HGB HCT DIFFERENCE 0.2; LYMPHOCYTES % (AUTO) 19.9 % (13-45); MEAN CORPUSCULAR HEMOGLOBIN 27.9 pg (27.0-33.4); MEAN CORPUSCULAR HGB CONC 33.5 g/dL (32.0-36.0); MEAN CORPUSCULAR VOLUME 83 fl (80-97); MONOCYTES % (AUTO) 8.7 % (3-13); RED BLOOD COUNT 3.94 10^6/uL (3.72-5.28); RED CELL DISTRIBUTION WIDTH 14.2 % (11.5-14.0); SEGMENTED NEUTROPHILS % (AUTO) 60.6 % (42-78); WHITE BLOOD COUNT 11.3 10^3/uL (4.0-10.5)
[2017-03-13 06:56] LABS: APPEARANCE,URINE CLOUDY; BILIRUBIN,URINE NEGATIVE (NEGATIVE); GLUCOSE, URINE NEGATIVE (NEGATIVE); KETONES,URINE NEGATIVE (NEGATIVE); LEUKOCYTE ESTERASE,URINE SMALL (NEGATIVE); NITRITE,URINE NEGATIVE (NEGATIVE); PROTEIN,URINE NEGATIVE (NEGATIVE); UROBILINOGEN,URINE NEGATIVE mg/dL (<2.0)
[2017-03-13 07:13] LABS: URINE BARBITURATES SCREEN NEGATIVE; URINE METHADONE SCREEN NEGATIVE; URINE OPIATES LOW NEGATIVE; URINE PHENCYCLIDINE SCREEN NEGATIVE
[2017-03-13] MEDS ORDERED: PENICILLIN G POTASSIUM 2,500,000 UNIT in DEXTROSE 5%-WATER 50 ML IV SCH (10:15)
[2017-03-13] MEDS ORDERED: EPHEDRINE SULFATE INJ 50 MG/1 ML AMPULE ONE (11:22)
[2017-03-13] MEDS ORDERED: FENTANYL/BUPIVACAINE/NS/PF 200 MCG/100 ML RTUINJ EPI ONE (11:22)
[2017-03-13] MEDS ORDERED: LIDOCAINE 1% INJ-PF (10 MG/ML) 30 ML SDV ONE (11:22)
[2017-03-13] MEDS ORDERED: OXYTOCIN/NORMAL SALINE 20 UNIT/1,000 ML RTUINJ ONE (11:22)
[2017-03-13] MEDS ORDERED: MISOPROSTOL 0.2 MG TABLET ONE (11:22)
[2017-03-13] MEDS ORDERED: BUPIVACAINE HCL 0.25 % INJ/PF (2.5 MG/1 ML) 30 ML VIAL ONE (11:22)
[2017-03-13] MEDS ORDERED: NA PHOS,M-B/NA PHOS,DI-BA (ADULT) 133 ML ENEMA PR PRN (14:39)
[2017-03-13] MEDS ORDERED: DIBUCAINE 1% OINTMENT 28 GM TP PRN (14:39)
[2017-03-13] MEDS ORDERED: PSEUDOEPHEDRINE HCL 30 MG TABLET PO PRN (14:39)
[2017-03-13] MEDS ORDERED: GLYCERIN/WITCH HAZEL LEAF 1 EACH MED..PAD TP PRN (14:39)
[2017-03-13] MEDS ORDERED: PROMETHAZINE HCL 25 MG SUPP.RECT PR PRN (14:39)
[2017-03-13] MEDS ORDERED: DIPH/PERTUSS(ACELL)/TETANUS VAC/PF 0.5 ML SYR (>=10YO) IM PRN (14:39)
[2017-03-13] MEDS ORDERED: PROMETHAZINE HCL INJ 25 MG/1 ML VIAL IV PRN (14:39)
[2017-03-13] MEDS ORDERED: ACETAMINOPHEN WITH CODEINE #3 TABLET PO PRN ×2 (14:39)
[2017-03-13] MEDS ORDERED: MAGNESIUM HYDROXIDE SUSP 30 ML UDCUP PO PRN (14:39)
[2017-03-13] MEDS ORDERED: ACETAMINOPHEN 650 MG SUPP.RECT PR PRN (14:39)
[2017-03-13] MEDS ORDERED: PROMETHAZINE HCL 25 MG TABLET PO PRN (14:39)
[2017-03-13] MEDS ORDERED: ZOLPIDEM TARTRATE 5 MG TABLET PO PRN (14:39)
[2017-03-13] MEDS ORDERED: BENZOCAINE/MENTHOL AEROSOL SPRAY 56 ML TOP PRN (14:39)
[2017-03-13] MEDS ORDERED: MEASLES,MUMPS&RUBELLA VACC/PF 0.5 ML VIAL SUBCUT PRN (14:39)
[2017-03-13] MEDS ORDERED: DIPHENHYDRAMINE HCL 25 MG CAPSULE PO PRN (14:39)
[2017-03-13] MEDS ORDERED: IBUPROFEN 800 MG TABLET ONE (15:44)
--- NOTE | 2017-03-13 16:09 | Delivery Summary ---
Del Sum A-C Datetime Report Generated by CPN: 03/13/2017 16:09 DELIVERY PERSONNEL DELIVERY PERSONNEL: [id number] Delivery Doctor:: Jaqueline Blair MD Labor and Delivery Nurse:: Leeanne Antunez RNlivestock yard supervisor Nurse:: Martina Alonso RN Well Puller Head/APPRAISER PERSONAL PROPERTY: Andreia Holt ST Well Puller Head/APPRAISER PERSONAL PROPERTY: Yana Vanegas, LOSS PREVENTION OPERATIONS MANAGER Additional Personnel: : Gabrielle CHEN RN MATERNAL INFORMATION Delivery Anesthesia: Epidural Medications After Delivery: Pitocin Bolus-Please Comment; Pitocin Drip 20 Units/1000ml NSS Meds After Delivery Comment: pitocin bolusing per order Estimated Blood Loss (ml): 100 Maternal Complications: None Provider Comments: Called for delivery at 1421, time of baby was 1421. was still resting on mother when I entered the room at 1423. Cord was doubly clamped and cut. Noted true knot in cord. Cord blood was collectted. Mom and tolerated the procedure well. was in paternal arms bonding at the end of procedure. LABOR SUMMARY EDC: 03/15/2017 00:00 No. Babies in Womb: 1 Attempted: No Labor Anesthesia: Epidural LABOR INFORMATION Reason for Induction: Other Reason for Induction- Other: Two vessel cord Onset of Labor: 03/13/2017 14:00 Complete Dilatation: 03/13/2017 14:20 Oxytocin: Induction Group B Beta Strep: positive Antibiotics # of Doses: 2 Antibiotics Time of Last Dose: 1030 Name of Antibiotic Given: Penicillin Steroids Given: None Reason Steroids Not Administered: Not Applicable MEMBRANES Membranes Rupture Method: Artificial Rupture of Membranes: 03/13/2017 11:02 Length of Rupture (hr): 3.32 Amniotic Fluid Color: Clear Amniotic Fluid Amount: Large Amniotic Fluid Odor: Normal STAGES OF LABOR Stage 1 hr: 0 Stage 1 min: 20 Stage 2 hr: 0 Stage 2 min: 1 Stage 3 hr: 0 Stage 3 min: 9 Total Time in Labor hr: 0 Total Time in Labor min: 30 VAGINAL DELIVERY Episiotomy: None Laceration #1: None Laceration Extension #1: N/A Laceration Repair: Not Applicable Sponge Count Correct: N/A Sharps Count Correct: N/A CSECTION DELIVERY Primary Indication: N/A Secondary Indication: N/A CSection Incidence: N/A Labor: N/A Elective: N/A CSection Incision: N/A BABY A INFORMATION Delivery Date/Time: 03/13/2017 14:21 Method of Delivery: Vaginal Born in Route : No : N/A Forceps: N/A Vacuum Extraction: N/A Shoulder Dystocia : No PRESENTATION/POSITION BABY A Presentation: Cephalic Cephalic Presentation: Vertex Vertex Position: OA Breech Presentation: N/A PLACENTA INFORMATION BABY A Placenta Delivery Time : 03/13/2017 14:30 Placenta Method of Delivery: Spontaneous Placenta Status: Delivered SCORES BABY A Heart Rate 1 min: >100 bpm Resp Effort 1 min: Good Cry Reflex Irritability 1 min: Cough or Sneeze or Pulls Away Muscle Tone 1 min: Active Motion Color 1 min: Body [place], Extremities Blue Resuscitation Effort 1 min: Tactile Stimulation SCORE 1 MIN: 9 Heart Rate 5 min: >100 bpm Resp Effort 5 min: Good Cry Reflex Irritability 5 min: Cough or Sneeze or Pulls Away Muscle Tone 5 min: Active Motion Color 5 min: Body [place], Extremities Blue Resuscitation Effort 5 min: Tactile Stimulation SCORE 5 MIN: 9 INFORMATION BABY A Gestational Age at Delivery: 39.5 Gestational Status: Full Term- 39- 40.6 Weeks Outcome : Liveborn Infant Condition : Stable Sex: Male IDENTIFICATION BABY A Verification Date/Time: 03/13/2017 14:44 ID Band Number: [id number] Mother's Name Verified: Yes RN Verifying Infant: CYamileth Antunez, RN Additional Verifying Personnel: BL. Keenan, RN WEIGHT/LENGTH BABY A Birthweight (gm): 3610 Weight (lb): 7 Infant Weight (oz): 15 Infant Length (in): 20.50 Infant Length (cm): 52.07 CORD INFORMATION BABY A No. Cord Vessels: 2 Nuchal Cord : Around Neck x1, Loose True Knot: 1 Cord Blood Taken: Yes-For Storage (Mom's Blood type +) Infant Suction: None ASSESSMENT BABY A Complications: Multiple Late Decels Physical Findings at Delivery: Within Normal Limits Infant Respirations: Appears Normal Skin to Skin: Yes Skin to Skin Time (min): 45 Data Miner/ALS Called : No Care By: MAYCO BENITEZ RN/N DOYLE, RN Transferred To: Remains with Mother BABY B INFORMATION : N/A SIGNATURES Signature: with User ID: [email or web address]
--- NOTE | 2017-03-13 17:52 | Admission Physical ---
Datetime Report Generated by CPN: 03/13/2017 17:51 CURRENT ADMISSION Hx Assessment: The History has been Reviewed and is Current Chief Complaint: Other Chief Complaint Other: Induction of labor-medical Indication for Induction: Term, Intrauterine Indication for Induction- Other: IOL for 2 vessel cord Admit Plan: Admit to Unit; Initiate Labor Induction Protocol ALLERGIES Medication Allergies: No Medication Allergies: No Known Allergies (03/03/2017) Medication Allergies: No Known Allergies (02/27/2017) Medication Allergies: No Known Allergies (02/12/2017) Medication Allergies: No Known Allergies (10/11/2016) Latex: No Latex Allergies Food Allergies: no Environmental Allergies: no OBSTETRICAL HISTORY EDC: 03/15/2017 00:00 : 9 Para: 2 Term: 2 : 0 SAB: 6 IAB: 0 Ectopic: 0 Livin Cesareans: 0 VBACs: 0 Multiple Births: 0 Gestational Diabetes: No Rh Sensitization: No Incompetent Cervix: No IVANA: No Infertility: No ART Treatment: No Uterine Anomaly: No IUGR: No Hx Previous C/S: No Macrosomia: No Hx Loss/Stillborn: No PIH: No Hx : No Placenta Previa/Abruption: No Depression/PP Depression: No PTL/PROM: No Post Hemorrhage: No Current Procedures: Ultrasound; NST Obstetrical History Comments: current- 2 vessel cord SEE RECORDS Alcohol: No Marijuana : No Cocaine: No Other Illicit Drugs: No Cigarettes: Never Smoker. [id number] MEDICAL HISTORY Diabetes: No Blood Transfusion: No Pulmonary Disease (Asthma, TB): Yes Breast Disease: No Hypertension: No Mixer Foam Rubber Surgery: No Heart Disease: No Hosp/Surgery: Yes Autoimmune Disorder: No Anesthetic Complications: No Kidney Disease: No Abnormal Pap Smear: Yes Neuro/Epilepsy: No Psychiatric Disorders: No Other Medical Diseases: No Hepatitis/Liver Disease: No Significant Family History: No Varicosities/Phlebitis: No Trauma/Violence : No Thyroid Dysfunction: No Medical History Comments: asthma, abnl pap 2013 (ASCUS HR HPV) with colpo INFECTIOUS HISTORY Gonorrhea: Yes Genital Herpes: No Chlamydia: Yes Tuberculosis: No Syphilis: No Hepatitis: No HIV/AIDS Exposure: No Rash or Viral Illness: No HPV: No Infectious History Comments: Trich 2015, Gonorrhea 17yo , Chlamydia 2015 PHYSICAL EXAM General: Normal HEENT: Normal Neurologic: Normal Thyroid: Deferred Heart: Normal Lungs: Normal Breast: Normal Back: Normal Abdomen: Normal Genitourinary Exam: Normal Extremities: Normal DTRs: Deferred Pelvic Type: Adequate Physical Exam Comments: Abdomen: Gravid NT Vital Signs: Reviewed; Within Normal Limits VAGINAL EXAM Dilatation: 3 Effacement: 50 Station: -1 Contraction Comments: irregular MEMBRANES Pooling: Negative Membranes: Intact FETUS A EGA: 39.5 Monitoring: External US FHR- Baseline: 130s Variability: Moderate 6-25bpm Accelerations: 15X15 Decelerations: None FHR Category: Category I FHR Comments: Reasurring status Estimated Weight (gm): 4000g Presentation: Vertex Admit Comment: @ 39w5d for IOL 2nd to two vessel cord. Pt reports good fm, no vb, no lof and irregular ctxs. Pt states early this week with APFS she was noted to have a fluid level of 24.5cm. Introductions made and pt had the opportunity to ask questions. Will go forward with pitocin IOL (CVX 2.5/50/-1 mid soft) and amniotomy following 2nd dose of IV antibiotics. PLANS FOR LABOR AND DELIVERY Labor and Delivery: None Pain Management: Epidural Feeding Preference: Both Benefit of Breast Feed Discussed: Yes Circumcision: Yes INFORMED CONSENT Signature: with User ID: [email or web address]
[2017-03-13] MEDS: IBUPROFEN 800 MG TABLET PO SCH (22:24)
[2017-03-13] MEDS: FAMOTIDINE 20 MG TABLET PO SCH (22:24)
[2017-03-14] MEDS: FERROUS SULFATE 325 MG TABLET PO SCH ×3 (01:40→18:01)
[2017-03-14] MEDS: DOCUSATE SODIUM 100 MG CAPSULE PO SCH ×3 (01:40→18:00)
[2017-03-14] MEDS: IBUPROFEN 800 MG TABLET PO SCH ×3 (06:06→22:18)
[2017-03-14 07:56] LABS: HEMATOCRIT 30.5 % (36.0-47.0); HEMOGLOBIN 10.3 g/dL (12.0-15.5); HGB HCT DIFFERENCE 0.4; MEAN CORPUSCULAR HEMOGLOBIN 28.2 pg (27.0-33.4); MEAN CORPUSCULAR HGB CONC 33.7 g/dL (32.0-36.0); MEAN CORPUSCULAR VOLUME 84 fl (80-97); RED BLOOD COUNT 3.64 10^6/uL (3.72-5.28); WHITE BLOOD COUNT 12.1 10^3/uL (4.0-10.5)
--- NOTE | 2017-03-14 09:13 | PDOC PROGRESS REPORT ---
Subjective-OB Subjective: Post Delivery Day: 27 year old. Denies any needs at this time Doing well, no c/o, breast feeding, ambulating, voiding well, eating, no nausea Physical Exam (OB) Vital Signs: Temp Pulse Resp BP Pulse Ox 98 F 81 16 129/74 H 97 03/14/17 08:00 03/14/17 08:00 03/14/17 08:00 03/14/17 08:00 03/14/17 08:00 Intake & Output 03/13/17 03/14/17 03/15/17 06:59 06:59 06:59 Weight 116.95 kg - PIH/Pre-Eclampsia Headache: Absent Epigastric Pain: No Visual Changes: No - Lochia Lochia Amount: Scant < 10 ml Lochia Color: Rubra/Red - Abdomen Description: Tender, Soft Hernia Present: No Fundal Description: Firm, Midline Fundal Height: u/u - u/2 Objective-Diagnostic Laboratory: 03/14/17 07:50 03/14/17 07:50 WBC 12.1 H RBC 3.64 L Hgb 10.3 L Hct 30.5 L MCV 84 MCH 28.2 MCHC 33.7 RDW 14.0 Plt Count 236 Assessment and Plan(PN) - Time Spent with Patient Time with patient: Less than 15 minutes Medications reviewed and adjusted accordingly: Yes - Disposition Anticipated Discharge: Home Within: within 24 hours
[2017-03-14] MEDS: FAMOTIDINE 20 MG TABLET PO SCH ×2 (10:04→22:17)
[2017-03-14] MEDS: PRENATAL VITAMIN W DHA CAPSULE PO SCH (10:04)
[2017-03-14] MEDS: SENNOSIDES/DOCUSATE 8.6-50 MG 1 EACH TABLET PO SCH (10:05)
[2017-03-15] MEDS: IBUPROFEN 800 MG TABLET PO SCH (06:31)
[2017-03-15] MEDS: DOCUSATE SODIUM 100 MG CAPSULE PO SCH (09:43)
[2017-03-15] MEDS: FERROUS SULFATE 325 MG TABLET PO SCH (09:43)
[2017-03-15] MEDS: PRENATAL VITAMIN W DHA CAPSULE PO SCH (09:43)
[2017-03-15] MEDS: FAMOTIDINE 20 MG TABLET PO SCH (09:43)
[2017-03-15] MEDS: SENNOSIDES/DOCUSATE 8.6-50 MG 1 EACH TABLET PO SCH (09:44)
--- NOTE | 2017-03-15 10:15 | PDOC PROGRESS REPORT ---
Subjective-OB Subjective: Post Delivery Day: 27 year old. Denies any needs at this time Doing well, no c/o, ready to go home, breast feeding, scant lochia Physical Exam (OB) Vital Signs: Temp Pulse Resp BP Pulse Ox 97.7 F 93 16 125/77 98 03/15/17 08:50 03/15/17 08:50 03/15/17 08:50 03/15/17 08:50 03/15/17 08:50 Intake & Output 03/14/17 03/15/17 03/16/17 06:59 06:59 06:59 Intake Total 240 340 Balance 240 340 - PIH/Pre-Eclampsia Headache: Absent Epigastric Pain: No Visual Changes: No - Lochia Lochia Amount: Scant < 10 ml Lochia Color: Rubra/Red - Abdomen Description: Tender, Soft Hernia Present: No Fundal Description: Firm, Midline Fundal Height: u/u - u/2 Objective-Diagnostic Laboratory: 03/14/17 07:50 Assessment and Plan(PN) - Time Spent with Patient Time with patient: Less than 15 minutes Medications reviewed and adjusted accordingly: Yes - Disposition Anticipated Discharge: Home Within: Other - today
--- NOTE | 2017-03-15 10:22 | PDOC DISCHARGE SUMMARY ---
Final Diagnosis Discharge Date: 03/15/17 - Final Diagnosis (1) Delivery normal Is this a current diagnosis for this admission?: Yes Discharge Data - Discharge Medication Home Medications: Fluticasone/Salmeterol [Advair HFA 45-21 mcg Inhaler] 2 puff IH Q4HP PRN Pnv No.95/Ferrous Fum/Folic AC [ Tablet] 1 tab PO DAILY 07/20/16 Albuterol Sulfate [Proair HFA] 8.5 gm IN PRN PRN 02/12/17 Gestational Age: 39.5 Reason(s) for Admission: Induction of Labor, Group B Strep Positive, Other Admission Note: 2 VC Procedures: NST, Ultrasound Intrapartum Procedure(s): Spontaneous Vaginal Delivery - Data Baby 1 Male at 1 minute: 9 at 5 minutes: 9 Weight: 3.6 kg Home with Mother: Yes Complications: No - Diagnosis Test Laboratory: Temp Pulse Resp BP Pulse Ox 97.7 F 93 16 125/77 98 03/15/17 08:50 03/15/17 08:50 03/15/17 08:50 03/15/17 08:50 03/15/17 08:50 03/13/17 03/13/17 03/14/17 06:05 06:30 07:50 RBC 3.94 3.64 L Hgb 11.0 L 10.3 L Hct 32.8 L 30.5 L Urine Opiates Screen NEGATIVE - Discharge information/Instructions Discharge Activity: Activity As Tolerated, No Lifting Over 10 Pounds, Pelvic Rest Discharge Diet: As Tolerated, Regular Disposition: HOME, SELF-CARE Follow up with: [facility] in: 4, Weeks
[2017-03-15 10:36] VITALS: BP 129/74
== END 2017-03-15 11:50 | disposition home or self-care (01) | DRG 775 ==
LOC: LR 05:58 → 2S 17:50
PROVIDERS: ADMIT Obstetrics & Gynecology; ATTEND Obstetrics & Gynecology
PROC: 10E0XZZ Delivery of Products of Conception, External Approach (ICD-10-PCS; principal; 2017-03-13)
PROC: 4A1HXCZ Monitoring of Products of Conception, Cardiac Rate, External Approach (ICD-10-PCS; 2017-03-13)
DX: O69.5XX0 Labor and delivery complicated by vascular lesion of cord, not applicable or unspecified (principal); O69.2XX0 Labor and delivery complicated by other cord entanglement, with compression, not applicable or unspecified; O76 Abnormality in fetal heart rate and rhythm complicating labor and delivery; O99.52 Diseases of the respiratory system complicating childbirth; O99.824 Streptococcus B carrier state complicating childbirth; J45.909 Unspecified asthma, uncomplicated; Z3A.39 39 weeks gestation of pregnancy; Z37.0 Single live birth
CPT/HCPCS: 36415; 80307; 81005; 85025; 85027; 86592; 86850; 86900; 86901; 94760; J2540; J2590; J3490